=== PATIENT | female | born 1990 | race American Indian/Alaskan Native ===

== ENCOUNTER 2017-03-16 15:45 | Emergency (ER) | payer SELFPAY ==
[2017-03-16 15:55] VITALS: BP 125/83
[2017-03-16 17:36] LABS: Bilirubin,Urine NEG (Negative); Blood,Urine MOD (Negative); Ketones,Urine NEG (Negative); Leukocyte Esterase,Urine MOD (Negative); Mucus,Urine 3+ /HPF; Nitrite,Urine NEG (Negative)
[2017-03-16] MEDS ORDERED: NORCO 5/325 PO ONE (17:36)
[2017-03-16] MEDS ORDERED: VALIUM PO ONE (17:36)
--- NOTE | 2017-03-16 17:38 | Emergency Department Report ---
Abscess Boil HPI - HPI Chief Complaint: Skin/Abscess/Foreign Body Stated Complaint: BARTHOLIN CYST Time Seen by Provider: 03/16/17 17:06 Location: Perianal History: Yes Pain, Yes Previous History, No Fever, No Purulent Drainage, No Numbness, No Foreign Body, No Insect Bite HPI: 26-year-old -[place] female comes in with complaint of cysts on her bottom for several days. It is worse today. She reports she has been. Warm baths without much relief. 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 Patient currently takes no medication. Home Medications: Previous Rx's Medication Instructions Recorded Last Taken Type Cephalexin [Keflex] 500 mg PO Q6HR #20 capsule 12/29/16 Unknown Rx Naproxen [Naprosyn] 500 mg PO BID #30 tablet 12/29/16 Unknown Rx Sulfamethoxazole/Trimethoprim 1 each PO BID #10 tablet 12/29/16 Unknown Rx [Bactrim DS TAB] Ibuprofen [Motrin] 800 mg PO Q8HR PRN #30 tablet 03/16/17 Unknown Rx Sulfamethoxazole/Trimethoprim 1 each PO BID #20 tablet 03/16/17 Unknown Rx [Bactrim DS TAB] Allergies/Adverse Reactions: Allergies Allergy/AdvReac Type Severity Reaction Status Date / Time nickel Allergy Itching Verified 03/16/17 15:50 red dye Allergy Itching Verified 03/16/17 15:50 ED Review of Systems ROS: Stated complaint: BARTHOLIN CYST Other details as noted in HPI ED Past Medical Hx - Past Medical History Previous Medical History?: Yes Additional medical history: Bartholin cyst, Anemia with blood transfusions - Surgical History Past Surgical History?: No - Social History Smoking Status: Current Every Day Smoker Substance Use Type: None - Medications Home Medications: Home Medications Medication Instructions Recorded Confirmed Last Taken Type Cephalexin [Keflex] 500 mg PO Q6HR #20 capsule 12/29/16 Unknown Rx Naproxen [Naprosyn] 500 mg PO BID #30 tablet 12/29/16 Unknown Rx Sulfamethoxazole/Trimethoprim 1 each PO BID #10 tablet 12/29/16 Unknown Rx [Bactrim DS TAB] Ibuprofen [Motrin] 800 mg PO Q8HR PRN #30 tablet 03/16/17 Unknown Rx Sulfamethoxazole/Trimethoprim 1 each PO BID #20 tablet 03/16/17 Unknown Rx [Bactrim DS TAB] ED Abscess Boil Physical Exam - Exam General: Vital signs noted. No distress. Alert and acting appropriately. I & D Note - I & D Note I & D Note: Site was cleaned with Betadine solution. 16 blade was used to incision. Copious amounts of purulent discharge with some blood clots was expressed out. Patient is very tender. Did not pack. ED Course Vital Signs 03/16/17 15:52 Temperature 98.2 F Pulse Rate 103 H Respiratory 18 Rate Blood Pressure 125/83 O2 Sat by Pulse 99 Oximetry Critical care attestation.: If time is entered above; I have spent that time in minutes in the direct care of this critically ill patient, excluding procedure time. ED Disposition Clinical Impression: Abscess of perineum Disposition: DISCHARGED TO HOME OR SELFCARE Is pt being admited?: No Does the pt Need Aspirin: No Condition: Stable Instructions: Abscess Incision and Drainage (ED), Abscess (ED) Additional Instructions: Please complete antibiotics as prescribed. Please take ibuprofen for pain management. Follow up with her primary care provider or [facility] doctor. Prescriptions: Ibuprofen [Motrin] 800 mg PO Q8HR PRN #30 tablet PRN Reason: Pain Sulfamethoxazole/Trimethoprim [Bactrim DS TAB] 1 each PO BID #20 tablet Referrals: PRIMARY CARE, [Primary Care Provider] - 3-5 Days [facility] [Provider Group] - 3-5 Days Forms: Accompanied Note, Work/School Release Form(ED)
== END 2017-03-16 18:24 | disposition home or self-care (01) ==
LOC: ED 15:45
DX: L02.215 Cutaneous abscess of perineum (principal); F17.200 Nicotine dependence, unspecified, uncomplicated; Z88.8 Allergy status to other drugs, medicaments and biological substances
CPT/HCPCS: 81001; 81025